=== PATIENT | male | born 1990 | race Caucasian/White ===

== ENCOUNTER 2017-07-20 23:49 | Emergency (ER) | payer MEDICAID ==
[~2017-07-20] VITALS: Ht 170.2 cm; Wt 104.3 kg
[~2017-07-20 23:49] MED LIST: IBUP-1611
[2017-07-21 00:45] VITALS: BP_SYST 121
--- NOTE | 2017-07-21 00:45 | NUR ---
Patient triaged and placed in waiting room. VSS and patient appears in no acute distress at this time. Accompanied by self, awaiting available bed, and MD notified of need for MSE.
--- NOTE | 2017-07-21 01:00 | NUR ---
Patient to ER bed 1, to await MD evaluation.
--- NOTE | 2017-07-21 01:05 | NUR ---
Patient to ER via triage with c/o difficulty breathing, and his inhaler not working. Lungs sounds clear, patient with c/o chest discomfort. No other complaints at present. Awaiting evaluation by ER MD, will continue to observe and assess.
--- NOTE | 2017-07-21 01:10 | NUR ---
Dr Wolfe at bedside to evaluate patient
[2017-07-21] MEDS ORDERED: IPRATROPIUM/ALBUTEROL SULFATE 3 ML AMPUL.NEB INH ONE (01:30)
[2017-07-21] MEDS ORDERED: methylPREDNISolone SOD SUCC/PF 62.5 MG/ML VIAL IM ONE (01:30)
--- NOTE | 2017-07-21 01:56 | NUR ---
Patient given written and verbal discharge instructions and verbalizes understanding. ER MD discussed with patient the results and treatment provided. Patient in stable condition. ID arm band removed. Rx of Singulair, Prednisone, Albuterol given. Patient educated on pain management and to follow up with PMD. Pain Scale 4. Opportunity for questions provided and answered. Patient has been discharged by Dr Wolfe, patient left ER ambulating with slow, steady gait. No adverse reaction noted to medication.
== END 2017-07-21 01:56 | disposition home or self-care (01) ==
LOC: SED 23:49
DX: J45.901 Unspecified asthma with (acute) exacerbation (principal); F41.9 Anxiety disorder, unspecified
CPT/HCPCS: 94640; 96372; 99283; J2930

== ENCOUNTER 2021-10-19 23:58 | Emergency (ER) | payer MEDICAID ==
[~2021-10-19] VITALS: Ht 172.7 cm; Wt 131.5 kg
[~2021-10-19 23:58] MED LIST changes: -IBUP-1611; +IBUP-2604
[2021-10-20 00:16] VITALS: BP_SYST 143
[2021-10-20] MEDS ORDERED: IBUPROFEN 800 MG TABLET PO ONE (03:30)
[2021-10-20] MEDS ORDERED: IBUPROFEN 800 MG TABLET ONE (03:32)
[2021-10-20 03:38] VITALS: BP_SYST 143
== END 2021-10-20 03:38 | disposition home or self-care (01) ==
LOC: SED 23:58
DX: S00.83XA Contusion of other part of head, initial encounter (principal); Y04.0XXA Assault by unarmed brawl or fight, initial encounter; Y93.89 Activity, other specified; Y92.89 Other specified places as the place of occurrence of the external cause; Y99.8 Other external cause status; J45.909 Unspecified asthma, uncomplicated
CPT/HCPCS: 99282